=== PATIENT | female | born 1965 | race Caucasian/White ===

== ENCOUNTER 2018-07-16 14:21 | Emergency (ER) | payer OTHER ==
[~2018-07-16] VITALS: Ht 167.6 cm; Wt 99.8 kg
== END 2018-07-16 16:14 | disposition home or self-care (01) ==
LOC: ER 14:21
DX: M79.18 Myalgia, other site (principal)

== ENCOUNTER → 2019-08-08 | Emergency (ER) | payer OTHER ==
[~2019-08-08] VITALS: Ht 167.6 cm; Wt 102.1 kg
[~2019-08-08] MED LIST: NORVASC5 MG PO
== END | disposition left against medical advice (07) ==
LOC: ER 11:28
DX: I10 Essential (primary) hypertension (principal)